=== PATIENT | female | born 1935 | race Two or more races ===

== ENCOUNTER 2019-04-23 09:02 | Emergency (ER) | payer MEDICARE, MEDICAID ==
[~2019-04-23] VITALS: Ht 170.2 cm; Wt 48.1 kg
[~2019-04-23 09:02] MED LIST: ALLERGY PILL; ATEN-41 PO; CHOLESTEROL PILL
[2019-04-23 09:08] VITALS: BP_SYST 156
--- NOTE | 2019-04-23 09:16 | NUR ---
Patient to ER bed 5 to gown for evaluation. Side rails up.
--- NOTE | 2019-04-23 09:17 | NUR ---
Patient is awake, alert, and oriented x4. Grand daughter is at bedside. Patient is complaining of rash to left neck and shoulder since . She denies any other symptoms.
--- NOTE | 2019-04-23 09:19 | NUR ---
NELLY Patterson at bedside examining patient.
[2019-04-23 09:41] VITALS: BP_SYST 156
--- NOTE | 2019-04-23 09:41 | NUR ---
Patient given written and verbal discharge instructions and verbalizes understanding. ER MD discussed with patient the results and treatment provided. Patient in stable condition. ID arm band removed. Rx of prednisone, norco, valtrex given. Patient educated on pain management and to follow up with PMD. Pain Scale 0/10. Opportunity for questions provided and answered. Medication side effect fact sheet provided.
== END 2019-04-23 09:41 | disposition home or self-care (01) ==
LOC: SED 09:02
DX: B02.9 Zoster without complications (principal); I10 Essential (primary) hypertension; Z88.8 Allergy status to other drugs, medicaments and biological substances; Z79.899 Other long term (current) drug therapy
CPT/HCPCS: 99283